=== PATIENT | female | born 1990 | race Caucasian/White ===

== ENCOUNTER 2017-08-13 10:31 | Emergency (ER) | payer OTHER ==
[2017-08-13 10:43] VITALS: BP 131/69; PULSE 69; TEMP 98.2; BMI 19.3
--- NOTE | 2017-08-13 11:31 | PDOC ---
History of Present Illness - General Chief Complaint: Injury Stated Complaint: FALL Time Seen by Provider: 08/13/17 11:02 History Source: Patient Exam Limitations: No Limitations - History of Present Illness Initial Comments: 08/13/17 11:26 Was jumping on trampoline with 2-year-old son yesterday, slipped and fell from trampoline . States landed on left arm/wrist and struck face on the floor sustaining some superficial abrasions. Patient states had neck and elsewhere on body as well however here to be evaluated due to - c/o pain to left wrist 08/13/17 13:31 Occurred: reports: yesterday Severity: reports: mild, moderate Pain Location: reports: upper extremity (left wrist) Modifying Factors: improves with: None, cold therapy Associated Symptoms (Fall): denies symptoms Past History - Travel Traveled outside of the country in the last 30 days: No Close contact w/someone who was outside of country & ill: No - Past Medical History Allergies/Adverse Reactions: Allergies Allergy/AdvReac Type Severity Reaction Status Date / Time No Known Allergies Allergy Verified 08/13/17 10:33 Home Medications: Ambulatory Orders NK [No Known Home Medication] 08/13/17 Asthma: No Cancer: No Cardiac Disorders: No COPD: No Diabetes: Yes (gestational diet controlled) HTN: No Seizures: No Thyroid Disease: No - Suicide/Smoking/Psychosocial Hx Smoking Status: No Smoking History: Never smoked Have you smoked in the past 12 months: No Number of Cigarettes Smoked Daily: 0 Information on smoking cessation initiated: No Hx Alcohol Use: No Drug/Substance Use Hx: No Substance Use Type: None Hx Substance Use Treatment: No Trauma Specific PMHX - Complaint Specific PMHX Back Injury: No Neck Injury: No Review of Systems - Review of Systems Able to Perform ROS?: Yes Is the patient limited Swedish proficient: Yes Constitutional: Yes: Symptoms Reported, See HPI, Malaise HEENTM: No: Symptoms Reported Musculoskeletal: Yes: Symptoms Reported, See HPI, Joint Pain, Joint Swelling ( left wrsit ) Neurological: Yes: See HPI. No: Symptoms reported, Tingling All Other Systems: Reviewed and Negative *Physical Exam - Vital Signs Last Vital Signs Temp Pulse Resp BP Pulse Ox 98.2 F 69 18 131/69 100 08/13/17 10:34 08/13/17 10:34 08/13/17 10:34 08/13/17 10:34 08/13/17 10:34 - Physical Exam General Appearance: Yes: Nourished, Appropriately Dressed, Apparent Distress, Mild Distress HEENT: positive: LEIGH, Normal ENT Inspection, TMs Normal, Pharynx Normal, Other (no orbital tenderness/ crepitus / stepoff/ -EOM , healing superficial abrasions noted to left brow, left forehead, cheek bone.) Neck: positive: Supple. negative: Tender, Lymphadenopathy (R), Lymphadenopathy (L) Respiratory/Chest: positive: Lungs Clear, Normal Breath Sounds Gastrointestinal/Abdominal: positive: Soft Musculoskeletal: positive: Normal Inspection Extremity: positive: Normal Capillary Refill, Swelling. negative: Normal Inspection, Normal Range of Motion (pain with supination and pronation to left wrist, strong flexion and extension to all digits, neurovascular intact to fingers.) Integumentary: positive: Dry, Warm, Pale Neurologic: positive: assurance senior II-XII NML intact, Fully Oriented, Alert, Normal Mood/ Affect, Normal Response, Motor Strength 5/5 Progress Note - Progress Note Progress Note: X-ray negative for fractures or dislocations, wrist immobilizer placed, patient given ibuprofen, and bacitracin ointment for superficial abrasions. Will follow up with Orth O as needed *DC/Admit/Observation/Transfer Diagnosis at time of Disposition: Sprain of wrist - Discharge Dispostion Disposition: HOME Condition at time of disposition: Stable Admit: No - Referrals Referrals: Kasi Frankel MD [Primary Care Provider] - Chu Eli MD [Staff Physician] - - Patient Instructions Printed Discharge Instructions: DI for Wrist Strain Additional Instructions: Rest, ice to area on and off for 15 minutes 4-6 times a day Avoid heavy lifting or exercise until pain and swelling is resolved or until further directed Keep area highly elevated to reduce swelling May use bacitracin ointment on all abrasions until healed Use splints/Dioni wrap as directed Followup with orthopedist in one to 2 days if not improving, if significantly improved may wait one week for followup with orthopedist May use ibuprofen 2-200 mg tablets every 6 hours as needed for pain - Post Discharge Activity
== END 2017-08-13 12:49 | disposition home or self-care (01) ==
LOC: JER 10:31 → JERFT 10:31
DX: S63.502A Unspecified sprain of left wrist, initial encounter (principal); W18.39XA Other fall on same level, initial encounter; Y93.89 Activity, other specified; Y92.9 Unspecified place or not applicable
CPT/HCPCS: 73110-TC-LR-FY; 99281-25

== ENCOUNTER 2020-01-15 02:13 | Inpatient (IN) | payer OTHER ==
--- OUTSIDE RECORDS SUMMARY | 2020-01-15 02:33 | XMS ---
:1990 Author Organization [facility] Support Name Relationship Address Phone ARIN Unavailable Unavailable Unavailable FLAVIA FRANCIS FATHER [address] [place] [phone] ADI FRANCIS BROTHER [address] [place] [address] Re-disclosure Warning The records that you are about to access may contain information from federally- assisted alcohol or drug abuse programs. If such information is present, then the following federally mandated warning applies: This information has been disclosed to you from records protected by federal confidentiality rules (42 CFR part 2). The federal rules prohibit you from making any further disclosure of this information unless further disclosure is expressly permitted by the written consent of the person to whom it pertains or as otherwise permitted by 42 CFR part 2. A general authorization for the release of medical or other information is NOT sufficient for this purpose. The Federal rules restrict any use of the information to criminally investigate or prosecute any alcohol or drug abuse patient.The records that you are about to access may contain highly sensitive health information, the redisclosure of which is protected by Article 27-F of the [facility] Public Health law. If you continue you may haveaccess to information: Regarding HIV / AIDS; Provided by facilities licensed or operated by the [facility] Office of Mental Health; or Provided by the [facility] Office for People With Developmental Disabilities. If such information is present, then the following [facility] mandated warning applies: This information has been disclosed to you from confidential records which are protected by state law. State law prohibits you from making any further disclosure of this information without the specific written consent of the person to whom it pertains, or as otherwise permitted by law. Any unauthorized further disclosure in violation of state law may result in a fine or shelter sentence or both. A general authorization for the release of medical or other information is NOT sufficient authorization for further disclosure. Insurance Providers Payer name Policy type Policy ID Covered Covered libertarian's Policy P liudmila / Coverage libertarian ID relationship to Sheikh Inf ormation type sheikh [place] MEDICA[place] [id number] [place] [id number] HMO Results ID Date Data Source [id number] 12/02/2019 03:43:00 PM EDT [facility] Name Value Range Interpretation Description Data Sup porting Code Source(s) Document(s ) SARS [facility] coronavirus 2 RNA This lab was ordered by [facility] and reported by [facility]. ID Date Data Source [id number] 11/25/2019 12:00:00 AM EDT [facility] Name Value Range Interpretation Code Description Data Gladys rce(s) Supporting Document(s ) 2019-nCoV [facility] RNA XXX JUN+probe- Imp [facility] lab [facility] and reported by [employer] Procedure
--- OUTSIDE RECORDS SUMMARY | 2020-01-15 03:10 | XMS ---
:1990 Author Organization [facility] Support Name Relationship Address Phone ARIN Unavailable Unavailable Unavailable FLAVIA FRANCIS FATHER [address] [place] [phone] ADI FRANCIS BROTHER [address] [facility] [phone] [place] [address] Re-disclosure Warning The records that you are [...] is protected by Article 27-F of the [facility] Public Health law. If you continue you may haveaccess to information: Regarding HIV / AIDS; Provided by facilities licensed or operated by the [facility] Office of Mental Health; or Provided by the [facility] Office for People With Developmental Disabilities. If such information is present, then the following [facility] mandated warning applies: This information has been [...] law may result in a fine or chcf sentence or both. A general authorization for the release of medical or other information is NOT sufficient authorization for further disclosure. Insurance Providers Payer name Policy type Policy ID Covered Covered republican's Policy P liudmila / Coverage republican ID relationship to Sheikh Inf ormation type sheikh [place] [id number] SP [id number] HMO Results ID Date Data Source [id number] 12/02/2019 03:43:00 PM EDT [facility] Name Value Range Interpretation Description Data Sup porting Code Source(s) Document(s ) SARS [facility] coronavirus 2 RNA This lab was ordered by [facility] and reported by [facility]. ID Date Data Source [id number] 11/25/2019 12:00:00 AM EDT [facility] Name Value Range Interpretation Code Description Data Gladys rce(s) Supporting Document(s ) 2019-nCoV [facility] RNA XXX JUN+probe- Imp This lab [facility] and reported by [employer] Procedure
[2020-01-15 03:17] LABS: HEMOGLOBIN 11.1 GM/dL (10.7-15.3); LYMPH % 8.7 % (8-40); MCH 30.2 pg (25.7-33.7); MCHC 33.6 g/dl (32.0-36.0); MEAN CELL VOLUME 89.7 fl (80-96); MEAN PLT VOLUME 10.9 fl (7.5-11.1); MONO % 90.5 % (3.8-10.2); NEUT % 0.8 % (42.8-82.8); PLATELET COUNT 128 K/MM3 (134-434); RBC 3.68 M/mm3 (3.60-5.2); RDW 16.5 % (11.6-15.6); WHITE BLOOD COUNT 11.8 K/mm3 (4.0-10.0)
[2020-01-15 03:21] LABS: INR 0.99 (0.83-1.09); PROTHROMBIN TIME (PATIENT) 11.7 SEC (9.7-13.0)
[2020-01-15 03:24] LABS: ACTIVATED PTT 26.4 SECONDS (25.2-36.5)
[2020-01-15 03:39] LABS: BLOOD UREA NITROGEN 10.8 mg/dL (7-18); CALCIUM 8.8 mg/dL (8.5-10.1); CREATININE 0.6 mg/dL (0.55-1.3); POTASSIUM 4.2 mmol/L (3.5-5.1)
[2020-01-15 03:40] VITALS: BMI 24.6
[2020-01-15] MEDS ORDERED: ELECTROLYTE-148 SOLN 1,000 ML IV SCH (03:45)
[2020-01-15] MEDS ORDERED: FENTANYL/BUPIVACAINE/NS/PF - PCEA - 50 ML DISP.SYRIN EP ONE ×2 (03:48→08:31)
[2020-01-15] MEDS ORDERED: PCA PUMP NR ONE ×2 (03:48→08:30)
[2020-01-15] MEDS ORDERED: BUPIVACAINE HCL/PF 0.25% (2.5MG/ML) 10 ML VIAL ONE (03:55)
[2020-01-15] MEDS ORDERED: FENTANYL/BUPIVACAINE/NS/PF - PCEA - 50 ML DISP.SYRIN EP SCH (04:15)
[2020-01-15] MEDS ORDERED: NALOXONE HCL 0.4 MG/ML VIAL IVPUSH PRN (04:15)
[2020-01-15 05:22] LABS: ANISOCYTOSIS 0; MACROCYTOSIS 0; PLATELET ESTIMATE DECREASED
[2020-01-15] MEDS ORDERED: OXYTOCIN 20 UNITS in 0.9% NS 20 UNIT/1,000 ML INFUS.BAG IV ONE (07:00)
[2020-01-15] MEDS ORDERED: LIDOCAINE HCL 1% PRESERVATIVE FREE - 30ML VIAL ONE (07:00)
--- NOTE | 2020-01-15 08:05 | HP ---
Past Medical History - Admission History of Present Illness: 29 yo @ 38 5/7 wks, EDC 01/24/2020 complicated by: 1. Prior CD, desiring TOLAC delivery in 2014 for nonreassuring heart tracing, at 38 wks, not in labor, remote from delivery, baby 6 lb 9 oz She has been counseled multiple times regarding risks / benefits of TOLAC/ Last ultrasound 01/12/2020 at 38 wks, 6 lb 15 oz (3143 g, 39%ile) 2. Late transfer of care from [place], no records available 3. GDMA1 prior Normal GCT per records from [place] Hg A1C 5.5 4. COVID + at 30 wks Covid antibodies positive No complaints of sx today Patient presents with chief complaint of contractions, since 01/13 AM which began to increase in intensity and frequency at Patient reports no leakage of fluid or vaginal bleeding and endorses movement History Source: Patient Limitations to Obtaining History: No Limitations - Past Medical History Cardiovascular: No: HTN Pulmonary: No: Asthma ...: 3 ...Para: 1 ...Term: 1 ...: 0 ...Spon : 1 ...Induced : 0 ...Living Children: 1 ...Multiple Gestation: 0 ...LMP: 04/02/20 ... Weeks Gestation by Dates: 38.5 ...EDC by Dates: 01/24/20 ...EDC by Sono: 01/24/20 Heme/Onc: Yes: Anemia - Past Surgical History Past Surgical History: Yes: Hx Myomectomy: No Hx Transabdominal Cerclage: No - Smoking History Smoking history: Never smoked Have you smoked in the past 12 months: No Aproximately how many cigarettes per day: 0 - Alcohol/Substance Use Hx Alcohol Use: No History of Substance Use: reports: None - Social History History of Recent Travel: Yes (from [place] 11/2014) Home Medications - Allergies Allergies/Adverse Reactions: Allergies Allergy/AdvReac Type Severity Reaction Status Date / Time No Known Allergies Allergy Verified 01/15/20 04:56 - Home Medications Home Medications: Ambulatory Orders Ferrous Sulfate [Iron] 325 mg PO DAILY 01/10/20 Pnv No.95/Ferrous Fum/Folic AC [ Caplet] 1 each PO DAILY 01/10/20 Family Medical History Family History: Denies Review of Systems - Review of Systems Constitutional: reports: No Symptoms Cardiovascular: reports: No Symptoms Respiratory: reports: No Symptoms Gastrointestinal: reports: No Symptoms Musculoskeletal: reports: No Symptoms Integumentary: reports: No Symptoms Neurological: reports: No Symptoms Endocrine: reports: No Symptoms Psychiatric: reports: No Symptoms Physical Exam - Maternity Vital Signs: Vital Signs Temperature 97.5 F L 01/15/20 02:38 Pulse Rate 67 01/15/20 07:45 Respiratory Rate 17 01/15/20 07:45 Blood Pressure 124/62 01/15/20 07:45 O2 Sat by Pulse Oximetry (%) 100 01/15/20 07:45 Constitutional: Yes: Well Nourished, No Distress, Calm Cardiovascular: Yes: Regular Rate and Rhythm Lungs: Clear to auscultation - Abdominal Exam/OB Number of Fetuses: Single Contractions: Yes Regularity: Regular Category: I - Physical Exam Extremities: Yes: WNL Psychiatric: Yes: WNL - Labs Lab Results: CBC, BMP 01/15/20 03:05 01/15/20 03:05 PNL: O positive, antibody neg, RPR NR, HBS ag neg, HCV neg, HIV neg, Hg trevor aa, Varicella Immune; Rubella Immune; GBS neg Hemorrhage Risk Assessment - Risk Factors Medium Risk Factors: Yes: Prior , uterine surgery,or multiple laparotomies High Risk Factors: Yes: None Risk Score: 1 Risk Level: Medium Risk Assessment/Plan 29 yo @ 38 + wks, active labor 1. Admit to L&D 2. Routine labs and covid swab collected and sent 3. GBS negative 4. Category I FHT 5. Consents reviewed and signed. Reviewed risks of Trial of Labor after Delivery, including but not limited to: - Risk of failed trial of labor resulting in a repeat delivery in approximately 20-40% of patients who attempt - Risk of rupture of uterus resulting in emergency delivery (0.2 - 1.5% risk) - Risk of , neurologic compromise - Rare risk of maternal 6. Will proceed with expectant management
[2020-01-15] MEDS ORDERED: OXYTOCIN 30 UNITS in 0.9% NS 30 UNIT/500 ML INFUS.BAG IVPB ONE (09:43)
[2020-01-15] MEDS ORDERED: OXYTOCIN 30 UNITS in 0.9% NS 30 UNIT/500 ML INFUS.BAG IVPB SCH (09:45)
--- NOTE | 2020-01-15 11:05 | PN ---
Progress Note, Labor Vaginal Exam #1 Labor Exam Date: 01/15/20 Labor Exam Time: 09:00 Dilatation: 8 Presentation: Vertex/Position Station: -1 Remarks: 29 yo @ 38 wks, TOLAC unchanged cervical exam will start pitocin risks including uterine tachysystole, heart rate changes, emergent delivery, uterine rupture discussed GBS neg pain well controlled with epidrual Vaginal Exam #2 Labor Exam Date: 01/15/20 Labor Exam Time: 11:03 Heart Rate (range): 140 Dilatation: 10 Effacement (%): 100 Amniotic Membrane Status: Ruptured Presentation: Vertex/Position Station: +1 Remarks: 29 yo prior CD, for TOLAC Good cervical change, will begin pushing Category I FHT
--- NOTE | 2020-01-15 12:23 | PN ---
Delivery - Delivery Vaginal Delivery: V-Bryan, Vacuum Assist Type of Anesthesia: Epidural Episiotomy/Laceration: Midline, 4th Degree EBL (cc): 300 Delivery, Single - Stages of Labor Date 1st Stage Initiatied: 01/14/20 Time 1st Stage Initiated: 21:00 Date 2nd Stage Initiated: 01/15/20 Time 2nd Stage Initiated: 10:45 Date of Delivery: 01/15/20 Time of Delivery: 11:35 Date Placenta Delivered: 01/15/20 Time Placenta Delivered: 12:10 Placenta: Yes: Expressed - Condition of Infant Infant Gender: Male Position: Left, OA - 5 Minutes Total Score: 9 1 Minute Total Score: 9 - [place] Feeding Plan Initial Plan: Elected not to breastfeed exclusively throughout hospitalization Remarks - Remarks Remarks: Patient progressed to fully dilated, began pushing, fetus brought to +2 station FHT developed late decelartions, to 80 -90 bpm, spontaneous return to baseline 140s Decision made to proceed to vacuum-assist, risks discussed with patient, verbal consent obtained. Kiwi vacuum applied along midline suture, vacuum pressure applied to approximately 75 mmHg, downward pressure applied with pushes. 5 pulls with contractions, with release of vacuum in between contractions, 4 pop off occured Head delivered, right anterior shoulder difficult, left posterior shoulder delivered without difficulty Infant with spontaneous cry and placed on mother's abdomen. Nose and mouth was bulb suctioned. Cord was clamped and cut, cord blood and gasses collected and sent. handing to waiting waiting casino manager Perineum and vagina examined, a fourth degree laceration was noted and repaired with care to reapproximate anal sphincter. Rectal exam revealed no sutures in rectum, good rectal tone. Placenta was delivered spontaneously and intact. 20 units of pitocin in 1 L IVF was given. All counts correct x 2. Mother and infant stable in LDR. EBL 300cc.
[2020-01-15] MEDS ORDERED: METHYLERGONOVINE MALEATE 0.2 MG/1 ML AMP IM PRN (12:25)
[2020-01-15] MEDS ORDERED: BENZOCAINE 20% 57 GM BOTTLE TP PRN (12:25)
[2020-01-15] MEDS ORDERED: BISACODYL 10 MG SUPP.RECT RC PRN (12:25)
[2020-01-15] MEDS ORDERED: WITCH HAZEL 50% (TUCKS) 40 PAD/JAR PAD TP PRN (12:25)
[2020-01-15] MEDS ORDERED: BENZOCAINE 28 GM HEMORRHOIDAL OINTMENT TP PRN (12:25)
[2020-01-15] MEDS ORDERED: OXYTOCIN 20 UNITS in 0.9% NS 20 UNIT/1,000 ML INFUS.BAG IV SCH (12:30)
[2020-01-15 12:35] LABS: CORD BASE EXCESS -7.4 mmol/L (0-2); CORD HCO3 20.4 mmHg (20-29); CORD pH 7.238 (7.14-7.44)
[2020-01-15] MEDS: IBUPROFEN 600 MG TABLET (FP) PO PRN ×2 (13:04→17:24)
[2020-01-15] MEDS: ACETAMINOPHEN 325 MG TABLET (FP) PO PRN ×2 (13:06→17:25)
[2020-01-15] MEDS ORDERED: CLINDAMYCIN 900 MG PREMIX IVPB 900 MG/50 ML BAG IVPB ONE ×2 (13:59→14:32)
[2020-01-15] MEDS ORDERED: metroNIDAZOLE 500 MG TABLET PO SCH (22:00)
[2020-01-15] MEDS: SENNOSIDES/DOCUSATE COMBO (SENNA PLUS) TABLET (UD) PO SCH (22:04)
[2020-01-16] MEDS: ACETAMINOPHEN 325 MG TABLET (FP) PO PRN ×4 (04:53→23:08)
[2020-01-16] MEDS: IBUPROFEN 600 MG TABLET (FP) PO PRN ×4 (04:53→23:08)
[2020-01-16 07:16] LABS: BASO % 0.1 % (0-2.0); EOS % 0.3 % (0-4.5); HEMATOCRIT 26.7 % (32.4-45.2); HEMOGLOBIN 8.9 GM/dL (10.7-15.3); LYMPH % 12.7 % (8-40); MCH 29.8 pg (25.7-33.7); MCHC 33.3 g/dl (32.0-36.0); MEAN CELL VOLUME 89.3 fl (80-96); MEAN PLT VOLUME 10.3 fl (7.5-11.1); MONO % 4.8 % (3.8-10.2); NEUT % 82.1 % (42.8-82.8); PLATELET COUNT 111 K/MM3 (134-434); RBC 2.99 M/mm3 (3.60-5.2); RDW 16.8 % (11.6-15.6); WHITE BLOOD COUNT 11.2 K/mm3 (4.0-10.0)
--- NOTE | 2020-01-16 07:35 | PN ---
Progress Note (short form) - Note Progress Note: ppd1 foing well, no c/o, no excess vaginal bleeding, voids ok, no dizziness CBC, BMP 01/16/20 06:45 01/15/20 03:05 abdomen soft,uterus firm, non tender lochia mild no calf tenderness impression anemia, asymptomatic , no active vaginal bleeding plan ambulate , iron, vit
--- NOTE | 2020-01-16 20:12 | DS ---
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 Vital Signs: Vital Signs Temperature 97.6 F 01/16/20 09:00 Pulse Rate 85 01/16/20 09:00 Respiratory Rate 17 01/16/20 09:00 Blood Pressure 97/58 L 01/16/20 09:00 O2 Sat by Pulse Oximetry (%) 100 01/16/20 09:00 Constitutional: Yes: Well Nourished, No Distress, Calm Eyes: Yes: WNL, Conjunctiva Clear, EOM Intact HENT: Yes: WNL, Atraumatic, Normocephalic Neck: Yes: WNL, Supple, Trachea Midline Cardiovascular: Yes: WNL, Regular Rate and Rhythm Respiratory: Yes: WNL, Regular, CTA Bilaterally Gastrointestinal: Yes: WNL, Normal Bowel Sounds, Soft ...Rectal Exam: Yes: Deferred Renal/: Yes: WNL ....Post : Yes: Uterus firm, Uterus non-tender, Slight lochia rubra Breast(s): Yes: WNL Musculoskeletal: Yes: WNL Extremities: Yes: WNL Edema: Yes Edema: LLE: Trace, RLE: Trace Integumentary: Yes: WNL Neurological: Yes: WNL, Alert, Oriented ...Motor Strength: WNL Psychiatric: Yes: WNL, Alert, Oriented Labs: CBC, BMP 01/16/20 06:45 01/15/20 03:05 Delivery - Delivery Vaginal Delivery: V-Bryan, Vacuum Assist Type of Anesthesia: Epidural Episiotomy/Laceration: Midline, 4th Degree EBL (cc): 300 Delivery, Single - Stages of Labor Date 1st Stage Initiatied: 01/14/20 Time 1st Stage Initiated: 21:00 Date 2nd Stage Initiated: 01/15/20 Time 2nd Stage Initiated: 10:45 Date of Delivery: 01/15/20 Time of Delivery: 11:35 Time Placenta Delivered: 12:10 Placenta: Yes: Expressed - 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 Present: Yes Name: Di Barboza Infant Gender: Male Weight: 2.608 kg Position: Left, OA Total Hours ROM (Hrs/Mins): 5 hours 19 minutes - 5 Minutes Total Score: 9 1 Minute Total Score: 9 - Feeding Plan Initial Plan: Elected not to breastfeed exclusively throughout hospitalization Benefits of Exclusively reinforced: Yes Discharge Summary Problems reviewed: Yes Reason For Visit: LABOR ADMIT Prior C/S, successful , 4th degree obstetric laceration, anemia Procedures: Principal: Vacuum assisted vaginal delivery Other Procedures: Repair of 4th degree obstetric laceration Hospital Course: Normal recovery, ambulation, pain management, breast feeding Health Concerns: Anemia, avoid constipation Plan of Treatment: Ambulation, pain management, breast feeding Goals: vitamins, correction of anemia, avoid constipation Condition: Good - Instructions Diet, Activity, Other Instructions: regular diet, follow up office 4 weeks, if fever, pain, heavy vaginal bleeding call md Physical activity Resume your normal everyday activity as tolerated no heavy lifting or exercise until seen by your surgeon. You may walk unlimited awa of and climb stairs. You may resume driving the car when you feel safe and comfortable behind the wheel. No sexual activity as instructed. Wound care If you have a bandage, leave it on, and keep dry for 48-72 hours. After that time discard the outer bandage. If they are tapes on the skin under the out of bandage leave them in place. They will peel off in the next 7 to 10 days. Do Not Peel them off. You may shower the day after surgery. If there are tapes present on the skin, you may shower over them. Diet There are no dietary restrictions. Eat healthy, high-fiber foods. Drink 6 to 8 glasses of liquid each day. This will assist in keeping your bowels are regular. Pain management You may take Tylenol or acetaminophen or Ibuprofen (for example, Motrin, Advil etc.) from my pain prescription medication is ordered should be taken as prescribed for moderate to severe pain. Call MD for any of the following: Severe pain not relieved by medication Fever of 101 or higher Excessive bleeding or drainage on dressing Inability to urinate Referrals: Teodoro Bennett MD [Staff Physician] - Disposition: HOME - Home Medications Comprehensive Discharge Medication List: Ambulatory Orders Ferrous Sulfate [Iron] 325 mg PO DAILY 01/10/20 Pnv No.95/Ferrous Fum/Folic AC [ Caplet] 1 each PO DAILY 01/10/20 Ibuprofen [Motrin -] 600 mg PO QID #28 tablet 01/15/20
[2020-01-16 20:51] VITALS: BP 101/61
[2020-01-16] MEDS: SENNOSIDES/DOCUSATE COMBO (SENNA PLUS) TABLET (UD) PO SCH (21:41)
[2020-01-17] MEDS: IBUPROFEN 600 MG TABLET (FP) PO PRN ×2 (05:50→14:06)
[2020-01-17] MEDS: ACETAMINOPHEN 325 MG TABLET (FP) PO PRN (05:50)
[2020-01-17 08:16] VITALS: PULSE 74; TEMP 98.2
--- NOTE | 2020-01-17 09:08 | PN ---
Post Progress Note - Subjective Subjective: Patient without acute complaints. Reports tolerating oral intake without nausea or vomiting. Ambulating without dizziness. Denies fevers or chills. Pain well controlled with oral pain medication. Pumping/breast feeding without issue. Post Day: 2 Type of Delivery: Vital Signs: Vital Signs Temperature 98.2 F 01/17/20 08:14 Pulse Rate 74 01/17/20 08:14 Respiratory Rate 18 01/17/20 08:14 Blood Pressure 101/61 01/16/20 20:45 O2 Sat by Pulse Oximetry (%) 99 01/17/20 08:14 Breast Exam: Yes: Soft Uterus: Yes: Fundus Firm, Fundus below umbilicus, Non-tender Abdomen/GI: Yes: Abdomen soft, Passing flatus, Tolerating PO Lochia: Yes: Rubra Lochia, amount: Small Extremities: Yes: Calves non-tender Perineum: Yes: Laceration (repair intact) Activity: Ambulating - Labs Labs: CBC WBC 11.2 K/mm3 (4.0-10.0) H 01/16/20 06:45 RBC 2.99 M/mm3 (3.60-5.2) L 01/16/20 06:45 Hgb 8.9 GM/dL (10.7-15.3) L 01/16/20 06:45 Hct 26.7 % (32.4-45.2) L D 01/16/20 06:45 MCV 89.3 fl (80-96) 01/16/20 06:45 MCH 29.8 pg (25.7-33.7) 01/16/20 06:45 MCHC 33.3 g/dl (32.0-36.0) 01/16/20 06:45 RDW 16.8 % (11.6-15.6) H 01/16/20 06:45 Plt Count 111 K/MM3 (134-434) L 01/16/20 06:45 MPV 10.3 fl (7.5-11.1) 01/16/20 06:45 Absolute Neuts (auto) 9.2 K/mm3 (1.5-8.0) H 01/16/20 06:45 Neutrophils % 82.1 % (42.8-82.8) D 01/16/20 06:45 Neutrophils % (Manual) 70.7 % (42.8-82.8) 01/15/20 03:05 Band Neutrophils % 2.0 % 01/15/20 03:05 Lymphocytes % 12.7 % (8-40) D 01/16/20 06:45 Lymphocytes % (Manual) 18.2 % (8-40) 01/15/20 03:05 Monocytes % 4.8 % (3.8-10.2) D 01/16/20 06:45 Monocytes % (Manual) 5 % (3.8-10.2) 01/15/20 03:05 Eosinophils % 0.3 % (0-4.5) D 01/16/20 06:45 Eosinophils % (Manual) 1.0 % (0-4.5) 01/15/20 03:05 Basophils % 0.1 % (0-2.0) D 01/16/20 06:45 Basophils % (Manual) 0.0 % (0-2.0) 01/15/20 03:05 Myelocytes % (Man) 2 % (0-2) 01/15/20 03:05 Promyelocytes % (Man) 0 % (0-2) 01/15/20 03:05 Blast Cells % (Manual) 0 % (0-0) 01/15/20 03:05 Nucleated RBC % 0 % (0-0) 01/16/20 06:45 Metamyelocytes 1 % (0-2) 01/15/20 03:05 Hypochromia 0 01/15/20 03:05 Platelet Estimate Decreased 01/15/20 03:05 Polychromasia 1+ 01/15/20 03:05 Poikilocytosis 0 01/15/20 03:05 Anisocytosis 0 01/15/20 03:05 Microcytosis 0 01/15/20 03:05 Macrocytosis 0 01/15/20 03:05 Assessment/Plan 29yo P2 s/p , doing well stable, afebrile. Asymptomatic for anemia. care instructions reviewed. Continue routine care. Ambulation encouraged Discharge instruction reviewed. Care of 4th degree ob laceration discussed.
--- NOTE | 2020-01-17 23:19 | PN ---
Progress Note (short form) - Note Progress Note: ID CONSULT DICTATED
== END 2020-01-17 15:35 | disposition home or self-care (01) | DRG 560 ==
LOC: JDEL 02:13 → JLDR 02:38 → J3W 15:04
PROVIDERS: ADMIT Obstetrics & Gynecology; ATTEND Obstetrics & Gynecology
PROC: 0DQP0ZZ Repair Rectum, Open Approach (ICD-10-PCS; principal; 2020-01-15)
PROC: 10D07Z6 Extraction of Products of Conception, Vacuum, Via Natural or Artificial Opening (ICD-10-PCS; 2020-01-15)
DX: O70.3 Fourth degree perineal laceration during delivery (principal); O99.02 Anemia complicating childbirth; Z3A.39 39 weeks gestation of pregnancy; Z37.0 Single live birth
CPT/HCPCS: 36415; 36600; 59025; 59409; 80048; 82803; 85025; 85610; 85730; 86780; 86850; 86900; 86901; 86922; U0003